=== PATIENT | female | born 1985 | race American Indian/Alaskan Native ===

== ENCOUNTER 2017-07-24 12:05 | Emergency (ER) | payer MEDICAID ==
[2017-07-24 12:14] VITALS: BP 127/92
--- NOTE | 2017-07-24 12:36 | Emergency Department Report ---
ED Lower Extremity HPI - General Chief Complaint: Extremity Injury, Lower Stated Complaint: LEFT FOOT INJURY Time Seen by Provider: 07/24/17 12:19 Source: patient Mode of arrival: Ambulatory Limitations: No Limitations - History of Present Illness MD Complaint: foot injury -: Sudden, Last night Injury: Foot: Left Type of Injury: hyperflexion Place: home Severity: moderate - Related Data Allergies Allergy/AdvReac Type Severity Reaction Status Date / Time latex Allergy Rash Verified 07/24/17 12:10 morphine Allergy Rash Verified 07/24/17 12:10 Sulfa (Sulfonamide Allergy Rash Verified 07/24/17 12:10 Antibiotics) ED Review of Systems ROS: Stated complaint: LEFT FOOT INJURY Other details as noted in HPI Comment: All other systems reviewed and negative Constitutional: denies: chills, fever Respiratory: denies: cough, shortness of breath Cardiovascular: denies: chest pain, palpitations, dyspnea on exertion Gastrointestinal: denies: abdominal pain, nausea, vomiting, diarrhea, constipation, hematemesis ED Past Medical Hx - Past Medical History Previous Medical History?: Yes Hx Hypertension: Yes Additional medical history: Vaginal delivery x 1 - Surgical History Past Surgical History?: Yes Additional Surgical History: x 1 - Social History Smoking Status: Current Every Day Smoker Substance Use Type: Alcohol, Prescribed ED Physical Exam - General Limitations: No Limitations General appearance: alert, in no apparent distress - Head Head exam: Present: atraumatic, normocephalic, normal inspection - Eye Eye exam: Present: normal appearance, PERRL - ENT ENT exam: Present: normal exam - Neck Neck exam: Present: normal inspection, full ROM. Absent: tenderness, meningismus, lymphadenopathy, thyromegaly - Respiratory Respiratory exam: Present: normal lung sounds bilaterally. Absent: respiratory distress, wheezes, rales, rhonchi, stridor, chest wall tenderness - GI/Abdominal GI/Abdominal exam: Present: soft. Absent: distended, tenderness - Expanded Lower Extremity Exam Left Foot/Toe exam: Present: tenderness, swelling. Absent: abrasion, laceration, deformity - Back Exam Back exam: Present: normal inspection ED Course Vital Signs 07/24/17 12:10 Temperature 98 F Pulse Rate 61 Respiratory 18 Rate Blood Pressure 127/92 O2 Sat by Pulse 100 Oximetry ED Lower Extremity MDM - Radiology Data Radiology results: report reviewed Referring Physician: EDER MONTEZ Patient Name: ROSIBEL AGUILAR Date of : 1985 Sex: Female Report Date: 2017-07-24 Report Status: Finalized Findings [facility] [address] [place] [address] XRay Report Signed Patient: ROSIBEL AGUILAR MR#: [id number] : 1985 Acct:[id number] Age/Sex: 32 / F ADM Date: 07/24/17 Loc: ED Attending Dr: Ordering Physician: EDER MONTEZ Date of Service: 07/24/17 Procedure(s): XR foot 1V LT Accession Number(s): [id number] cc: EDER MONTEZ Fluoro Time In Minutes: Left foot single view: History: Injury. Findings: No bony or articular abnormality. No fracture dislocation is seen. Impression: No evidence of acute fracture Transcribed By: PTP Dictated By: BARRY IRIZARRY MD Electronically Authenticated By: BARRY IRIZARRY MD Signed Date/Time: 07/24/17 1243 DD/ 1241 TD/TT: 07/24/17 1243 Critical care attestation.: If time is entered above; I have spent that time in minutes in the direct care of this critically ill patient, excluding procedure time. ED Disposition Clinical Impression: Contusion, foot Disposition: DC-01 TO HOME OR SELFCARE Is pt being admited?: No Condition: Stable Instructions: Foot Contusion (ED)
--- NOTE | 2017-07-24 13:04 | XRay Report ---
Left foot single view: History: Injury. Findings: No bony or articular abnormality. No fracture dislocation is seen. Impression: No evidence of acute fracture
== END 2017-07-24 13:17 | disposition home or self-care (01) ==
LOC: ED 12:05
DX: S90.32XA Contusion of left foot, initial encounter (principal); F17.200 Nicotine dependence, unspecified, uncomplicated; X58.XXXA Exposure to other specified factors, initial encounter; Y93.89 Activity, other specified; Y92.89 Other specified places as the place of occurrence of the external cause; Y99.8 Other external cause status